=== PATIENT | male | born 1980 | race Caucasian/White ===

== ENCOUNTER 2020-01-10 20:37 | Emergency (ER) | payer OTHER ==
[~2020-01-10] VITALS: Ht 167.6 cm; Wt 113.0 kg
[2020-01-10] MEDS ORDERED: IV RINGERS SOLUTION,LACTATED 1,000 ML IV SCH (20:47)
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
[2020-01-10] MEDS ORDERED: cloNIDine HCL 0.1 MG TABLET PO ONE (21:00)
[2020-01-10 21:08] LABS: BASO % 0 % (0-3); EOS # 0.1 x10^3/uL (0.0-0.7); EOS % 0 % (0-3); HEMATOCRIT 47.1 % (39.0-53.0); HEMOGLOBIN 16.1 g/dL (13.0-17.5); LYMPH # 1.6 x10^3/uL (1.0-4.8); LYMPH % 10 % (24-48); MEAN CORPUSCULAR HEMOGLOBIN 30 pg (25-35); MEAN CORPUSCULAR HGB CONC 34 g/dL (31-37); MEAN CORPUSCULAR VOLUME 88 fL (79-100); MONO # 0.9 x10^3/uL (0.0-1.1); MONO % 5 % (0-9); NEUT # 14.4 x10^3uL (1.8-7.7); NEUT % 85 % (31-73); PLATELET COUNT 350 x10^3/uL (140-400); RED BLOOD COUNT 5.34 x10^6/uL (4.30-5.70); RED CELL DISTRIBUTION WIDTH 12.7 % (11.5-14.5)
--- NOTE | 2020-01-10 21:09 | RAD ---
CT HEAD INDICATION: Code stroke COMPARISON: None Available. Exposure: One or more of the following individualized dose reduction techniques were utilized for this examination: 1. Automated exposure control 2. Adjustment of the mA and/or kV according to patient size 3. Use of iterative reconstruction technique TECHNIQUE: 5 mm contiguous axial images were obtained from the skull base to the vertex in both bone and soft tissue algorithm. FINDINGS: There is diffuse subarachnoid bleed filling the basal cisterns and sulci in the brain. There is blood identified in the bilateral lateral, third and fourth ventricles. Blood is identified in the inferior aspect of the falx likely subdural bleed. The hector-white matter differentiation is maintained. The paranasal sinuses, mastoid air cells are clear. IMPRESSION: 1. Diffuse acute subarachnoid bleed suspicious for aneurysmal bleed. FOR INTERNAL CODING PURPOSES Critical result: Findings discussed with AJIT WINKLER at 01/10/2020 9:00PM. RESULT CODE: (C) Electronically signed by: Elijah Trinidad MD (01/10/2020 9:06 PM) [id number]
[2020-01-10] MEDS ORDERED: IV NORMAL SALINE 250ML 250 ML ONE (21:10)
[2020-01-10] MEDS ORDERED: LABETALOL 100 MG/20 ML VIAL. IV ONE ×3 (21:11→21:19)
[2020-01-10] MEDS ORDERED: LABETALOL 250 MG in IV NORMAL SALINE 250ML 200 ML IV ONE (21:15)
[2020-01-10] MEDS ORDERED: LABETALOL 20 MG/4 ML DISP.SYRIN. IVP ONE (21:15)
[2020-01-10 21:24] LABS: AMPHETAMINE/METHAMPHETAMINE NEG (NEG); BARBITURATES NEG (NEG); BENZODIAZEPINES NEG (NEG); CANNABINOIDS NEG (NEG); COCAINE NEG (NEG); METHADONE NEG (NEG); OPIATES NEG (NEG); PHENCYCLIDINE NEG (NEG)
[2020-01-10 21:25] LABS: ALBUMIN 4.5 g/dL (3.4-5.0); CREATININE 1.1 mg/dL (0.7-1.3); DIRECT BILIRUBIN 0.2 mg/dL (0.0-0.2); GFR 74.9; MAGNESIUM 1.9 mg/dL (1.8-2.4); TOTAL BILIRUBIN 0.6 mg/dL (0.2-1.0); TOTAL PROTEIN 8.4 g/dL (6.4-8.2)
[2020-01-10 21:27] LABS: POTASSIUM 2.7 mmol/L (3.5-5.1)
[2020-01-10 21:30] LABS: AMORPHOUS SEDIMENT,UR PRESENT /HPF; BACTERIA,URINE FEW /HPF (0-FEW); BILIRUBIN,URINE NEG (NEG); CLARITY,URINE CLOUDY; COLOR,URINE YELLOW; GLUCOSE,URINE 250 mg/dL (NEG); HYALINE CASTS, URINE OCC /HPF; NITRITE,URINE NEG (NEG); SQUAMOUS EPITHELIAL CELL,UR OCC /LPF; UROBILINOGEN,URINE 0.2 mg/dL (0.2 mg/dL)
[2020-01-10] MEDS ORDERED: ONDANSETRON PF 4 MG/2 ML VIAL. ONE (21:33)
[2020-01-10 21:34] LABS: % BANDS 7 % (0-9); % BASOS 1 % (0-3); % LYMPHS 8 % (24-48); % MONOS 8 % (0-10); % SEGS 76 % (35-66); PLT ESTIMATE ADEQUATE (ADEQUATE)
[2020-01-10 21:35] LABS: TOXIC GRANULATION SLIGHT; TOXIC VACUOLATION SLIGHT
[2020-01-10] MEDS ORDERED: POTASSIUM CHLORIDE 20MEQ 100 ML IV ONE (21:36)
--- NOTE | 2020-01-10 21:37 | RAD ---
AP portable chest 01/10/2020. Reason for exam: Syncope. No infiltrate or effusion is seen. Heart size and pulmonary vascularity appear normal. IMPRESSION: No acute disease. Electronically signed by: Ishan Santos Jr., MD (01/10/2020 9:34 PM) [facility]OSPITALMeliza
[2020-01-10] MEDS ORDERED: POTASSIUM CHLORIDE 20MEQ 100 ML IV SCH (21:45)
[2020-01-10] MEDS ORDERED: ONDANSETRON PF 4 MG/2 ML VIAL. IVP ONE ×3 (21:45→22:00)
[2020-01-10] MEDS ORDERED: POTASSIUM CHLORIDE 20 MEQ TABLET.ER. PO ONE (21:45)
[2020-01-10 22:04] VITALS: BP 189/126
--- NOTE | 2020-01-11 02:29 | EKG ---
[address] [address] Test Date: 2020-01-10 Test Time: 20:44:44 Pat Name: BONNIE GOOD Department: Room: Gender: M Entrepreneur: : 1980 Requested By: AJIT WINKLER Order Number: [id number] Reading MD: Measurements Intervals [place] Rate: 92 P: 239 DC: 144 QRS: 223 QRSD: 116 T: 137 QT: 384 QTc: 480 Interpretive Statements SINUS RHYTHM POSSIBLE LEFT ATRIAL ABNORMALITY ABNORMAL RIGHT SUPERIOR AXIS DEVIATION R-S TRANSITION ZONE IN V LEADS DISPLACED TO THE LEFT CONSIDER RIGHT VENTRICULAR HYPERTROPHY T ABNORMALITY IN HIGH LATERAL LEADS PROLONGED QT ABNORMAL ECG RI6.02 No previous ECG available for comparison
--- NOTE | 2020-01-13 09:07 | NUR ---
IP: attempt to call COVID result to [facility] IP, left message to call back.
--- NOTE | 2020-01-13 10:26 | NUR ---
IP: notified nurse Nancy CABA, of COVID result.
== END 2020-01-10 22:03 | disposition short-term general hospital (02) ==
LOC: ER 20:37
DX: I60.9 Nontraumatic subarachnoid hemorrhage, unspecified (principal); I10 Essential (primary) hypertension; E87.6 Hypokalemia; R79.89 Other specified abnormal findings of blood chemistry; E11.9 Type 2 diabetes mellitus without complications; Z20.828 Contact with and (suspected) exposure to other viral communicable diseases
CPT/HCPCS: 36415; 70450; 71045; 80048; 80076; 80307; 81001; 82550; 82947; 83690; 83735; 83880; 84443; 84484; 85007; 85025; 85379; 85610; 85730; 86140; 93005; 96365; 96368; 96375; 96376; 99291; J2405; J3010; J3480; J3490; J7050; J7120; U0003; 96366